=== PATIENT | female | born 1955 | race Caucasian/White ===

== ENCOUNTER 2021-07-25 09:53 | Day surgery (SDC) | payer MEDICARE, OTHER ==
[~2021-07-25 09:53] MED LIST: Midazolam 1 MG/ML 2 ML SDV ONE; Propofol 200 MG/20 ML SDV ONE; fentaNYL 100 MCG/2 ML SDV ONE
[2021-07-25] MEDS ORDERED: Sodium Chloride 0.9% 1,000 ML IV SCH (12:00)
--- NOTE | 2021-07-26 07:47 | OR ---
DATE OF PROCEDURE: 07/25/2021 SURGEON: Rj Akbar MD PROCEDURES: 1. Esophagogastroduodenoscopy. 2. Colonoscopy, resection of cecal polyp, 8 mm, completely removed using endoscopic mucosal resection techniques. FINDINGS: 1. Inflammation at GE junction concerning for reflux disease (biopsied using cold biopsy forceps in all four quadrants). 2. Otherwise normal EGD. 3. Diverticulosis, mild, limited to sigmoid colon without evidence of diverticulitis or bleeding. 4. Cecal polyp, approximately 5 mm, completely removed using cold biopsy forceps. COMPLICATIONS: None. [employer] PROGRAM DIRECTOR: None. ANESTHESIA: MAC. PREOPERATIVE DIAGNOSIS: Epigastric pain/screening colonoscopy. POSTOPERATIVE DIAGNOSIS: Epigastric pain/screening colonoscopy. RISKS: Risks, benefits, alternatives, and limitations including, but not limited to infection, bleeding, perforation, false positives, false negatives were explained to the patient and wished to proceed. PROCEDURE IN DETAIL: The patient was placed in left lateral decubitus position. The EGD scope was introduced and advanced atraumatically to the second part of the duodenum. No evidence of duodenitis or ulceration was noted. Within the stomach itself, there was no gastritis or ulceration. The GE junction showed an irregular Z-line with some mild amount of inflammation concerning for reflux disease. This was then biopsied multiple times using cold biopsy forceps. The remainder of esophagus was inspected without abnormality. A digital rectal exam was performed next. The scope was introduced and advanced atraumatically to the cecum. Within the cecum itself, the polyp was identified and completely removed using endoscopic mucosal resection techniques including elevation in all four quadrants using Jennifer Ink and subsequently hot snare resection. The scope was brought back to the remainder of the colon. No other abnormalities were noted. No old or new blood. The diverticulosis was described as above. No abnormalities on retroflexion. Greater than 8 minutes was spent removing the scope. The prep was acceptable. Approximately 90% of luminal surface could be seen. Rj Akbar MD /[id number]
== END 2021-07-25 12:35 | disposition home or self-care (01) ==
LOC: JP.SDS 09:53
PROVIDERS: ATTEND Surgery
DX: Z12.11 Encounter for screening for malignant neoplasm of colon (principal); D12.0 Benign neoplasm of cecum; K20.90 Esophagitis, unspecified without bleeding; K22.70 Barrett's esophagus without dysplasia; K22.8 Other specified diseases of esophagus; E78.5 Hyperlipidemia, unspecified; E03.9 Hypothyroidism, unspecified; Z85.118 Personal history of other malignant neoplasm of bronchus and lung; Z88.0 Allergy status to penicillin
CPT/HCPCS: 45380; 45381; 45385; 45390; J2250; J2704; J3010; J7030

== ENCOUNTER 2023-07-23 12:50 | Emergency (ER) | payer MEDICARE ==
[2023-07-23 13:55] LABS: HEMATOCRIT 15.3 % (34.3-46.0); MEAN CORPUSCULAR HEMOGLOBIN 34.9 pg (31.6-35.5); MEAN CORPUSCULAR HGB CONC 34.6 g/dL (31.6-35.5); MEAN CORPUSCULAR VOLUME 100.7 fL (81.4-99.0); RED BLOOD CELL COUNT 1.52 M/uL (3.77-5.24); WHITE BLOOD CELL COUNT,WBC 1.4 K/uL (3.2-11.0)
[2023-07-23 13:57] LABS: HEMOGLOBIN 5.3 g/dL (11.2-15.5)
[2023-07-23 14:17] LABS: A/G RATIO 1.3 (1.2-2.2); ALANINE AMINOTRANSFERASE,ALT 27 U/L (12-78); ALBUMIN 3.5 g/dL (3.4-5.0); ALKALINE PHOSPHATASE 108 U/L (46-116); ASPARTATE AMNIOTRANSFERASE,AST 19 U/L (15-37); BILIRUBIN TOTAL 0.5 mg/dL (0.2-1.0); BLOOD UREA NITROGEN,BUN 20 mg/dL (7-18); CALCIUM 8.9 mg/dL (8.5-10.1); CARBON DIOXIDE,CO2 27 mmol/L (21-32); CHLORIDE,CL 102 mmol/L (100-108); CREATININE 0.9 mg/dL (0.6-1.0); EST CRCL DRUG DOSING (CG) 52.38 mL/min; ESTIMATED GFR 70 mL/min (>60); GLUCOSE RANDOM 105 mg/dL (74-106); POTASSIUM,K 4.2 mmol/L (3.6-5.2); PROTEIN TOTAL,TP 6.2 g/dL (6.4-8.2); SODIUM,NA 138 mmol/L (140-148); TROPONIN I HIGH SENSITIVITY 5.7 pg/mL (<=60.3)
[2023-07-23 14:22] LABS: ANION GAP 13.2 mmol/L (5.0-14.0)
== END 2023-07-23 21:06 | disposition home or self-care (01) ==
LOC: JP.ED 12:50
DX: D64.9 Anemia, unspecified (principal); K21.9 Gastro-esophageal reflux disease without esophagitis; E03.9 Hypothyroidism, unspecified; Z88.0 Allergy status to penicillin; Z79.899 Other long term (current) drug therapy
CPT/HCPCS: 36415; 36430; 71046; 80053; 84443; 84484; 85018; 85027; 86850; 86900; 86901; 86920; 86922; 93005; 99285; P9016

== ENCOUNTER 2025-03-09 13:44 | Emergency (ER) | payer MEDICARE | END 2025-03-09 16:15 | disposition home or self-care (01) | LOC: JP.ED 13:44 | DX: S20.359A Superficial foreign body of unspecified front wall of thorax, initial encounter (principal); E03.9 Hypothyroidism, unspecified; Z88.0 Allergy status to penicillin; Z79.890 Hormone replacement therapy; Z79.899 Other long term (current) drug therapy; Z87.891 Personal history of nicotine dependence; Z90.710 Acquired absence of both cervix and uterus; X58.XXXA Exposure to other specified factors, initial encounter | CPT/HCPCS: 99283 ==